=== PATIENT | female | born 1955 | race Caucasian/White ===

== ENCOUNTER 2017-08-06 17:14 | Inpatient (IN) | payer OTHER ==
[~2017-08-06] VITALS: Ht 162.6 cm; Wt 105.5 kg
[~2017-08-06 17:14] MED LIST: AMLODIPINE BESYL5 MG PO; ANASTROZOLE1 MG PO; BUPROPION XL300 MG PO; CEFDINIR300 MG PEG; FENOFIBRATE145 MG PO; GEMFIBROZIL600 MG PO; GLIPIZIDE ER10 MG PO; HUMULIN N100 UNITS/; LOSARTAN-HCTZ1 EAC1 PO; METFORMIN HCL1000 M1 PO; OMEPRAZOLE20 M1 PO; PYRIDIUM100 MG PO; SIMVASTATIN80 MG PO; TOPROL XL100 MG PO; ZOFRAN ODT4 MG SL
[2017-08-06] MEDS: SODIUM CHLORIDE 0.9% 1000ML 1,000 ML IV STA ×2 (17:24→18:08)
[2017-08-06] MEDS ORDERED: ACETAMINOPHEN 325 MG TAB PO ONE (17:30)
[2017-08-06] MEDS ORDERED: SODIUM CHLORIDE 0.9% 100 ML 100 ML IV ONE (17:30)
[2017-08-06 17:41] LABS: ABG HCO3 18 mmol/L (23-28); ABG PCO2 26 mmHg (41-51); ABG PH 7.44 (7.31-7.41); ABG PO2 64 mmHg (80-105)
[2017-08-06 18:03] LABS: BASOPHILS % 0.3 % (0.0-1.0); HEMATOCRIT 28.8 % (34.2-44.1); HEMOGLOBIN 8.9 g/dL (12.0-16.0); LYMPHOCYTES # (AUTO) 0.8 (1.0-3.2); LYMPHOCYTES % 5.8 % (18.0-39.1); MEAN CORPUSCULAR HEMOGLOBIN 22.8 pg (28-32); MEAN CORPUSCULAR HGB CONC 30.9 g/dL (31-35); MEAN CORPUSCULAR VOLUME 73.8 fL (81-99); MONOCYTES # (AUTO) 0.6 (0.2-0.8); MONOCYTES % 4.5 % (4.4-11.3); NEUTROPHILS % 87.6 % (38.7-80.0); PLATELET COUNT 223 x10e3/uL (140-360)
[2017-08-06 18:07] LABS: INR 1.25; PROTHROMBIN TIME 14.8 seconds (11.9-14.5)
[2017-08-06 18:08] LABS: PARTIAL THROMBOPLASTIN TIME 34.9 seconds (23.8-35.5)
[2017-08-06 18:14] LABS: CLARITY,URINE SL CLOUDY (CLEAR); COLOR,URINE YELLOW (YELLOW)
[2017-08-06 18:15] LABS: BILIRUBIN,URINE 1+ (NEGATIVE); KETONES,URINE 1+ (NEGATIVE); LEUKOCYTE ESTERASE ,URINE NEGATIVE (NEGATIVE); NITRITE,URINE NEGATIVE (NEGATIVE); PROTEIN,URINE DIPSTICK 2+ (NEGATIVE); URINE UROBILINOGEN 0.2 mg/dL (0.2 - 1)
[2017-08-06] MEDS ORDERED: SODIUM CHLORIDE 0.9% 1000ML 1,000 ML IV SCH (18:15)
[2017-08-06] MEDS ORDERED: ALBUTEROL/IPRATROPIUM 3 ML NEB NEB ONE (18:15)
[2017-08-06 18:16] LABS: ALBUMIN 2.8 g/dL (3.5-5.0); ALBUMIN/GLOBULIN RATIO 0.5 (0.8-2.0); ANION GAP 23.4 mmol/L (8-16); CALCIUM 9.8 mg/dL (8.4-10.2); CREATININE, SERUM 1.55 mg/dL (0.57-1.11); MAGNESIUM 1.2 MG/DL (1.3-2.1); POTASSIUM 3.4 mmol/L (3.5-5.1)
--- NOTE | 2017-08-06 18:22 | Diagnostic Imaging Report ---
PROCEDURE: CHEST SINGLE (PORTABLE) COMPARISON: None. INDICATIONS: NAUSEA/VOMITING/WEAKNESS FINDINGS: LUNGS: Lung volumes are low. No consolidation or mass in the aerated portion of the lungs. PLEURA: No large effusions. No pneumothorax HEART \T\ MEDIASTINUM: The heart is enlarged. The pulmonary vasculature is normal. BONES \T\ SOFT TISSUES: No focal osseous lesions. Soft tissues are unremarkable. CONCLUSION: Low lung volumes and cardiomegaly without vascular congestion. Dictated by: Fede Moreira M.D. on 08/06/2017 at 18:23 Electronically approved by: Fede Moreira M.D. on 08/06/2017 at 18:23
[2017-08-06 18:23] LABS: AMORPHOUS SEDIMENT,URINE MODERATE (FEW); BACTERIA,URINE MODERATE /HPF; EPITHELIAL CELLS,URINE FEW /LPF; RBC,URINE 0-5 /HPF (0-5)
[2017-08-06 18:27] LABS: B-TYPE NATRIURETIC PEPTIDE2 45.1 pg/mL (0-100)
[2017-08-06] MEDS ORDERED: LIPITOR80 MG PO (18:29)
[2017-08-06 18:35] LABS: CREATINE KINASE MB 0.9 ng/mL (0-5.0); THYROID STIMULATING HORMONE 0.994 uIU/mL (0.350-4.940)
[2017-08-06 18:42] LABS: BAND NEUTROPHILS % (MANUAL) 1 %; HYPOCHROMASIA SLIGHT; LYMPHOCYTES % (MANUAL) 5 % (19-48); MONOCYTES % (MANUAL) 4 % (3.4-9.0); NEUTROPHILS % (MANUAL) 90 % (40-74); PLATELET ESTIMATE ADEQUATE; PLATELET MORPHOLOGY COMMENT FEW GIANT; RBC MORPHOLOGY COMMENT NORMAL
[2017-08-06] MEDS ORDERED: PIPER-TAZ 3.375 GM 50 ML IV STA (18:49)
[2017-08-06] MEDS ORDERED: DIATRIZOATE MEGL/DIATRIZOA SOD 30 ML BTL PO ONE (18:49)
[2017-08-06] MEDS ORDERED: VANCOMYCIN 1GM/NS 250 ML 250 ML IV STA (18:49)
[2017-08-06] MEDS ORDERED: INSULIN DETEMIR 100 UNIT/ML PEN SQ PRN (19:00)
[2017-08-06] MEDS ORDERED: MAGNESIUM SULF 1GRAM/DEXTROSE 100 ML IV ONE (19:05)
[2017-08-06] MEDS ORDERED: SODIUM CHLORIDE 0.9% 100 ML ONE (19:06)
[2017-08-06] MEDS: INSULIN REGULAR, HUMAN 3ML VL 100 UNIT in SODIUM CHLORIDE 0.9% 100 ML IV SCH ×2 (19:10)
[2017-08-06] MEDS: SODIUM CHLORIDE 0.9% 1000ML 1,000 ML IV SCH ×2 (19:10→23:17)
[2017-08-06] MEDS: POTASSIUM CHLORIDE 20MEQ/100ML 200 ML IV PRN ×2 (19:10→23:17)
[2017-08-06] MEDS ORDERED: VANCOMYCIN HCL 1GM/NS 250 ML BAG IV SCH (19:15)
[2017-08-06] MEDS: MAGNESIUM SULF 1GRAM/DEXTROSE 100 ML IV PRN ×2 (19:20→23:18)
--- OUTSIDE RECORDS SUMMARY | 2017-08-06 19:24 | XMS REPORT ---
Author Author [facility] Address Unknown Phone Unavailable Care Team Providers Care Paint Laboratory Technician Name Role Phone NIRALI WELCH Unavailable Unavailable Problems This patient has no known problems. Allergies, Adverse Reactions, Alerts This patient has no known allergies or adverse reactions. Medications This patient has no known medications. Results Test Description Test Time Test Comments Text Results Atomic Results Result Comments CHEST SINGLE (PORTABLE) [place] [address] Patient Name: BETTY BARKER MR #: [id number] : 1955 Age/Sex: 61/F Req #: [id number] Adm Physician: Ordered by: ALYSSA MOROCHO NP Report #: [id number] Location: ER Room/Bed: Procedure: [id number] DX/CHEST SINGLE (PORTABLE) Exam Date: 08/06/17 Exam Time: 1740 REPORT STATUS: Signed PROCEDURE: CHEST SINGLE (PORTABLE) COMPARISON: None. INDICATIONS: NAUSEA/VOMITING/ WEAKNESS FINDINGS: LUNGS: Lung volumes are low. No consolidation or mass in the aerated portion of the lungs. PLEURA: No large effusions. No pneumothorax HEART T MEDIASTINUM: The heart is enlarged. The pulmonary vasculature is normal. BONES T SOFT TISSUES : No focal osseous lesions. Soft tissues are unremarkable. CONCLUSION : Low lung volumes and cardiomegaly without vascular congestion. Dictated by: Tomas Moreira M.D. on 08/06/2017 at 18:23 Electronically approved by: Tomas Moreira M.D. on 08/06/2017 at 18:23 Dictated By: TOMAS MOREIRA MD 22 Transcribed By: MIGUEL on 08/06/171822 COPY TO: ALYSSA MOROCHO NP
[2017-08-06] MEDS ORDERED: ONDANSETRON HCL INJ 2 MG/ML VIAL ONE (19:29)
[2017-08-06] MEDS ORDERED: VANCOMYCIN 1GM/NS 250 ML 250 ML IV SCH (19:30)
--- NOTE | 2017-08-06 19:49 | Diagnostic Imaging Report ---
EXAM: CT Chest, abdomen and pelvis WITHOUT contrast 08/06/2017 6:44 PM INDICATION: Fever. Vomiting. Nausea. Weakness. COMPARISON: None TECHNIQUE: Chest, abdomen and pelvis was scanned utilizing a multidetector helical scanner without administration of IV contrast. Absence of intravenous contrast decreases sensitivity for detection of lymphadenopathy and vascular pathology. Coronal and sagittal reformations were obtained. Routine protocol was performed. IV CONTRAST: None RADIATION DOSE: Total DLP: 1291.46 mGy*cm Estimated effective dose: (DLP x 0.014 x size factor) mSv COMPLICATIONS: None FINDINGS: LINES/ TUBES: None. Breast implants. LUNGS AND AIRWAYS: Mild scarring/atelectasis at the lung bases. Airways are normal. PLEURA: The pleural spaces are clear. HEART AND MEDIASTINUM: The thyroid gland is normal. No mediastinal, hilar or axillary lymphadenopathy. The heart is normal in size.. There is no pericardial effusion. Abdomen: Enlargement of the left hepatic lobe with focal nodularity along the anterior margin as seen on series 2 image 55. MRI is recommended for further evaluation. The gallbladder is surgically absent. 2 cm left adrenal gland mass is indeterminate. Left greater than right perinephric fat stranding worrisome for pyelonephritis. The spleen, pancreas, right adrenal gland are unremarkable in appearance. No free fluid or abnormal fluid collections. Left periaortic lymph nodes likely reactive. There is scattered diverticulosis without evidence of diverticulitis. The appendix is unremarkable. Pelvis: Garcia catheter and air within the lumen of the urinary bladder. The urinary bladder and remainder of the visualized pelvic structures are otherwise unremarkable. BONES: The visualized bony thorax is within normal limits. SOFT TISSUES: Unremarkable. IMPRESSION: Findings worrisome for left greater than right pyelonephritis. Enlargement of the left hepatic lobe with focal nodularity along the anterior margin as seen on series 2 image 55. MRI is recommended for further evaluation. 2 cm left adrenal gland mass is indeterminate. Signed by: Dr. Johnson Reyez M.D. on 08/06/2017 7:46 PM
[2017-08-06] MEDS ORDERED: IBUPROFEN 600 MG TAB PO STA (19:51)
[2017-08-06] MEDS: ALBUTEROL SULF 0.083% NEB SOLN 3 ML NEB NEB SCH (20:50)
[2017-08-06] MEDS: ACETAMINOPHEN 325 MG TAB PO PRN (21:47)
[2017-08-06] MEDS ORDERED: PIPER-TAZ 3.375 GM 100 ML IV SCH (22:00)
[2017-08-06] MEDS ORDERED: ONDANSETRON HCL 4 MG ORAL DISINTEGRATING TAB ONE (22:12)
[2017-08-06] MEDS: ONDANSETRON HCL 4 MG ORAL DISINTEGRATING TAB PO PRN (22:26)
[2017-08-06 22:45] LABS: ANION GAP 15.8 mmol/L (8-16); CALCIUM 8.8 mg/dL (8.4-10.2); CREATININE, SERUM 1.3 mg/dL (0.57-1.11); MAGNESIUM 1.2 MG/DL (1.3-2.1)
[2017-08-06 22:48] LABS: POTASSIUM 2.8 mmol/L (3.5-5.1)
[2017-08-06] MEDS ORDERED: MAGNESIUM SULFATE 2GM/50ML 50 ML IV ONE (23:07)
[2017-08-07] MEDS: ALBUTEROL SULF 0.083% NEB SOLN 3 ML NEB NEB SCH ×3 (00:05→07:00)
[2017-08-07] MEDS: IPRATROPIUM BROMIDE 0.02% 2.5 ML NEB NEB SCH ×2 (00:05→07:00)
[2017-08-07 01:59] LABS: ANION GAP 14.8 mmol/L (8-16); CALCIUM 8.7 mg/dL (8.4-10.2); CREATININE, SERUM 1.34 mg/dL (0.57-1.11); MAGNESIUM 1.8 MG/DL (1.3-2.1)
[2017-08-07 02:02] LABS: POTASSIUM 2.8 mmol/L (3.5-5.1)
[2017-08-07] MEDS ORDERED: POTASSIUM CHLORIDE 20MEQ/100ML 100 ML ONE ×2 (02:05→06:37)
[2017-08-07] MEDS: POTASSIUM CHLORIDE 20MEQ/100ML 200 ML IV PRN ×3 (02:19→06:40)
[2017-08-07 02:23] LABS: CREATINE KINASE MB 1.3 ng/mL (0-5.0)
[2017-08-07] MEDS: SODIUM CHLORIDE 0.9% 1000ML 1,000 ML IV SCH ×7 (02:39→23:30)
[2017-08-07] MEDS: ACETAMINOPHEN 325 MG TAB PO PRN ×4 (02:39→23:22)
[2017-08-07] MEDS ORDERED: PIPER-TAZ 3.375 GM 100 ML IV SCH (03:00)
[2017-08-07] MEDS ORDERED: SODIUM CHLORIDE 0.9% 500ML 500 ML ONE (03:14)
[2017-08-07] MEDS ORDERED: SODIUM CHLORIDE 0.9% 100 ML ONE (03:58)
[2017-08-07] MEDS: ONDANSETRON HCL 4 MG ORAL DISINTEGRATING TAB PO PRN (04:01)
[2017-08-07] MEDS: INSULIN REGULAR, HUMAN 3ML VL 100 UNIT in SODIUM CHLORIDE 0.9% 100 ML IV SCH ×2 (04:02)
[2017-08-07] MEDS ORDERED: POTASSIUM CHLORIDE 10MEQ/100ML 100 ML ONE (04:29)
[2017-08-07 05:14] LABS: BASOPHILS % 0.4 % (0.0-1.0); HEMATOCRIT 24.5 % (34.2-44.1); HEMOGLOBIN 7.5 g/dL (12.0-16.0); LYMPHOCYTES # (AUTO) 0.4 (1.0-3.2); LYMPHOCYTES % 4.7 % (18.0-39.1); MEAN CORPUSCULAR HEMOGLOBIN 22.4 pg (28-32); MEAN CORPUSCULAR HGB CONC 30.6 g/dL (31-35); MEAN CORPUSCULAR VOLUME 73.1 fL (81-99); MONOCYTES # (AUTO) 0.4 (0.2-0.8); MONOCYTES % 4.7 % (4.4-11.3); NEUTROPHILS # (AUTO) 7.4 (2.1-6.9); NEUTROPHILS % 88.6 % (38.7-80.0); PLATELET COUNT 147 x10e3/uL (140-360); RED BLOOD COUNT 3.35 x10e6/uL (3.6-5.1); RED CELL DISTRIBUTION WIDTH 16.6 % (11.7-14.4)
[2017-08-07] MEDS: DEXTROSE 5%/0.45% SOD CHL 1,000 ML IV SCH ×2 (05:15→06:18)
[2017-08-07 05:30] LABS: ALBUMIN 2.2 g/dL (3.5-5.0); ALBUMIN/GLOBULIN RATIO 0.5 (0.8-2.0); ANION GAP 15.3 mmol/L (8-16); CALCIUM 8.5 mg/dL (8.4-10.2); CREATININE, SERUM 1.32 mg/dL (0.57-1.11); POTASSIUM 3.3 mmol/L (3.5-5.1)
--- NOTE | 2017-08-07 07:08 | Diagnostic Imaging Report ---
EXAMINATION: CHEST SINGLE (PORTABLE) INDICATION: Pneumonia. COMPARISON: 08/06/2017 FINDINGS: TUBES and LINES: None. LUNGS: Lungs are not well inflated. There are bibasilar atelectasis. There is no evidence of pneumonia or pulmonary edema. PLEURA: No pleural effusion or pneumothorax. HEART AND MEDIASTINUM: The cardiomediastinal silhouette is unremarkable. BONES AND SOFT TISSUES: No acute osseous lesion. Soft tissues are unremarkable. UPPER ABDOMEN: No free air under the diaphragm. IMPRESSION: No acute thoracic abnormality. Signed by: Dr. Isidoro aGrcia M.D. on 08/07/2017 7:04 AM
[2017-08-07 07:49] LABS: BAND NEUTROPHILS % (MANUAL) 10 %; LYMPHOCYTES % (MANUAL) 5 % (19-48); MONOCYTES % (MANUAL) 2 % (3.4-9.0); NEUTROPHILS % (MANUAL) 83 % (40-74)
[2017-08-07 07:50] LABS: HYPOCHROMASIA MODERATE; PLATELET ESTIMATE SLIGHTLY DECREASED; PLATELET MORPHOLOGY COMMENT FEW LARGE; RBC MORPHOLOGY COMMENT NORMAL
[2017-08-07 07:51] LABS: ANISOCYTOSIS SLIGHT
[2017-08-07] MEDS ORDERED: DEXTROSE 50% SYRINGE 50 ML IV PRN (08:30)
[2017-08-07] MEDS ORDERED: SODIUM CHLORIDE 0.45% 1,000 ML IV SCH (08:30)
[2017-08-07] MEDS: CEFTRIAXONE SOD 1 GM VIAL IV SCH (08:47)
[2017-08-07 10:04] LABS: CREATINE KINASE MB 1.1 ng/mL (0-5.0)
[2017-08-07 10:29] LABS: HEMATOCRIT 26.2 % (34.2-44.1); HEMOGLOBIN 7.9 g/dL (12.0-16.0)
[2017-08-07 10:46] LABS: % IRON SATURATION 2 % (15-50); IRON 6 ug/dL (50-170); TOTAL IRON BINDING CAPACITY 374 ug/dL (261-478); TRANSFERRIN 267 mg/dL (180-382)
[2017-08-07] MEDS ORDERED: POTASSIUM CHLORIDE 20 MEQ TAB CR PO ONE (11:00)
[2017-08-07] MEDS ORDERED: PROMETHAZINE 12.5MG/ NACL 0.9% 12.5 MG/50 ML BAG IV PRN (11:00)
[2017-08-07 11:08] VITALS: BP 151/63
[2017-08-07] MEDS: PROMETHAZINE 12.5MG/ NACL 0.9% 50 ML IV PRN ×2 (11:47→15:13)
[2017-08-07] MEDS: MORPHINE SULFATE 2 MG/ML SYR IV PRN ×3 (11:47→21:10)
[2017-08-07] MEDS: INSULIN REGULAR, HUMAN 100 UNIT/1 ML 3ML VIAL SQ SCH ×3 (12:08→21:10)
[2017-08-07 12:36] VITALS: BP 142/61
--- NOTE | 2017-08-07 14:34 | Diagnostic Imaging Report ---
PROCEDURE:MRI ABDOMEN WO COMPARISON:None. INDICATIONS:Not provided. TECHNIQUE: Multiplanar, multisequence MRI of the abdomen without intravenous contrast Using the routine protocol. Sequences included axial T1 weighted images, T1 weighted opposed phase images, T2-weighted images in the axial and coronal planes. Coronal FIESTA images and diffusion-weighted images were also obtained. IV CONTRAST: None COMPLICATIONS: None FINDINGS: The examination is limited by significant motion artifact LINES/ TUBES: None. LOWER THORAX: Bibasilar atelectasis. HEPATOBILIARY: Cirrhotic liver morphology. There is a 3.1 cm mildly T2 hyperintense mass in the left hepatic lobe (series 8, image 31). The gallbladder is nonvisualized. SPLEEN: The spleen is mildly enlarged, measuring 13.8 cm in craniocaudal dimension. PANCREAS: Limited visualization of the pancreas due to motion artifact. No gross abnormalities. ADRENALS: 2.0 cm left adrenal mass with no convincing loss of signal on opposed phase images. No right adrenal mass. KIDNEYS: Redemonstrated is mild enlargement of the left kidney with asymmetric perinephric stranding. No hydronephrosis. A 1.1 cm T2 hyperintense lesion in the lower pole of the right kidney (series 8, image 46) could represent a cyst. GI TRACT: Visualized bowel is grossly unremarkable. LYMPH NODES: No obvious lymphadenopathy. VESSELS: Unremarkable PERITONEUM/RETROPERITONEUM: No free air or free fluid in the upper abdomen. BONES: Unremarkable SOFT TISSUES: Bilateral breast implants are partially visualized. IMPRESSION: 1. Very limited examination due to the lack of intravenous contrast and significant motion artifact. 2. Cirrhotic liver with evidence of portal hypertension. 3. There is a 3.1 cm mass in the left hepatic lobe which is suspicious for hepatocellular carcinoma. Recommend liver protocol CT or MRI of the abdomen (with and without contrast) when clinically feasible. 4. 2.0 cm left adrenal nodule is indeterminate. 5. Again seen is mild enlargement of the left kidney with left perinephric stranding. This is suspicious for pyelonephritis. Dictated by: Maulik Garcia M.D. on 08/07/2017 at 14:35 Electronically approved by: Maulik Garcia M.D. on 08/07/2017 at 14:35
[2017-08-07 16:04] VITALS: BP 176/76
[2017-08-07] MEDS ORDERED: HYDRALAZINE HCL 20 MG/ML VIAL IV PRN (16:15)
[2017-08-07] MEDS: ALBUTEROL/IPRATROPIUM 3 ML NEB NEB PRN ×3 (16:30→23:09)
[2017-08-07 16:55] LABS: ABG HCO3 20 mmol/L (23-28); ABG PCO2 25 mmHg (41-51); ABG PH 7.51 (7.31-7.41); ABG PO2 61 mmHg (80-105)
[2017-08-07 17:12] VITALS: BP 139/64
[2017-08-07] MEDS ORDERED: VANCOMYCIN 1GM/NS 250 ML 250 ML IV SCH (18:00)
[2017-08-07] MEDS ORDERED: IRON SUCROSE 100 MG in SODIUM CHLORIDE 0.9% 100 ML 100 ML IV SCH ×2 (19:00→20:00)
[2017-08-07 20:00] VITALS: BP 174/71
[2017-08-07 21:07] VITALS: BP 174/71
[2017-08-07] MEDS: NIFEDIPINE CR 30 MG TAB PO SCH (23:18)
[2017-08-07] MEDS: METOPROLOL TARTRATE 50 MG TAB PO SCH (23:22)
[2017-08-08] VITALS (16 sets, daily range): BP systolic 116–163; BP diastolic 60–72
[2017-08-08] MEDS: MORPHINE SULFATE 2 MG/ML SYR IV PRN ×6 (00:10→20:35)
[2017-08-08] MEDS: ALBUTEROL/IPRATROPIUM 3 ML NEB NEB PRN ×4 (02:30→19:28)
[2017-08-08] MEDS ORDERED: FUROSEMIDE INJ 10 MG/ML 4 ML VIAL IV ONE ×2 (03:00→16:00)
[2017-08-08] MEDS: HEPARIN SOD (PORCINE) 5,000 UNIT/ML VIAL SC SCH ×3 (06:04→23:46)
--- NOTE | 2017-08-08 07:39 | Diagnostic Imaging Report ---
EXAMINATION: Chest, CHEST SINGLE (PORTABLE) INDICATION: Chest pain COMPARISON: Portable chest 08/07/2017 FINDINGS: LINES: None. Heart: Normal cardiac silhouette. Vascular: The pulmonary vasculature is within normal limits. Atherosclerotic calcifications of the aortic arch. Mediastinum: No mediastinal, hilar, or axillary mass or lymphadenopathy. Lungs: No parenchymal mass. Bilateral multifocal airspace opacities. Pleura: No pleural effusion. No pneumothorax. Bones: No acute osseous abnormality. Degenerative changes of the thoracic spine. Soft tissues: Normal. Impression: Bilateral multifocal airspace opacities may represent atelectasis or developing pneumonia. Signed by: Dr. Shawn Hudson M.D. on 08/08/2017 7:36 AM
[2017-08-08] MEDS: CEFTRIAXONE SOD 1 GM VIAL IV SCH (07:44)
[2017-08-08] MEDS: METOPROLOL TARTRATE 50 MG TAB PO SCH ×2 (07:45→21:34)
[2017-08-08] MEDS: INSULIN REGULAR, HUMAN 100 UNIT/1 ML 3ML VIAL SQ SCH ×4 (07:47→21:39)
[2017-08-08 08:08] LABS: BASOPHILS % 0.2 % (0.0-1.0); EOSINOPHILS % 0.2 % (0.0-6.0); HEMATOCRIT 24.1 % (34.2-44.1); HEMOGLOBIN 7.3 g/dL (12.0-16.0); LYMPHOCYTES # (AUTO) 0.7 (1.0-3.2); MEAN CORPUSCULAR HEMOGLOBIN 22.5 pg (28-32); MEAN CORPUSCULAR HGB CONC 30.3 g/dL (31-35); MEAN CORPUSCULAR VOLUME 74.2 fL (81-99); MONOCYTES # (AUTO) 0.7 (0.2-0.8); MONOCYTES % 7.6 % (4.4-11.3); NEUTROPHILS # (AUTO) 7.8 (2.1-6.9); NEUTROPHILS % 84.1 % (38.7-80.0); PLATELET COUNT 167 x10e3/uL (140-360); RED BLOOD COUNT 3.25 x10e6/uL (3.6-5.1); RED CELL DISTRIBUTION WIDTH 16.5 % (11.7-14.4)
[2017-08-08 08:21] LABS: INR 1.27; PROTHROMBIN TIME 14.9 seconds (11.9-14.5)
[2017-08-08 08:22] LABS: PARTIAL THROMBOPLASTIN TIME 40.6 seconds (23.8-35.5)
[2017-08-08 08:26] LABS: ALBUMIN 2.1 g/dL (3.5-5.0); BILIRUBIN,DIRECT 0.4 mg/dL (0.0-0.5)
[2017-08-08 08:34] LABS: ANION GAP 15.1 mmol/L (8-16); CALCIUM 8.8 mg/dL (8.4-10.2); CREATININE, SERUM 1.6 mg/dL (0.57-1.11); MAGNESIUM 1.6 MG/DL (1.3-2.1); POTASSIUM 4.1 mmol/L (3.5-5.1)
[2017-08-08 10:55] LABS: NEUTROPHILS % (MANUAL) 84 % (40-74)
[2017-08-08 10:56] LABS: LYMPHOCYTES % (MANUAL) 10 % (19-48); MONOCYTES % (MANUAL) 6 % (3.4-9.0); PLATELET ESTIMATE ADEQUATE; PLATELET MORPHOLOGY COMMENT NORMAL; RBC MORPHOLOGY COMMENT NORMAL
[2017-08-08] MEDS ORDERED: INSULIN DETEMIR 100 UNIT/ML PEN SQ ONE (16:00)
[2017-08-08] MEDS ORDERED: GENTAMICIN 120MG/NS 100ML 100 ML IV ONE ×2 (16:00)
--- NOTE | 2017-08-08 16:10 | Progress Note ---
DATE: August 08, 2017 PULMONARY MEDICINE PROGRESS NOTE SUBJECTIVE: Ms. Graham was seen and examined at bedside. She had worsening overnight. She became increasingly more short of breath. She had to be initiated on BiPAP for salvage, and she was transferred to ICU. She was given a trial of Lasix as well, hopefully with some partial responsiveness. So far, E. coli is being grown from her urine, which has already been found to be sensitive to . REVIEW OF SYSTEMS: No chest pain, no blood in urine. OBJECTIVE VITAL SIGNS: Afebrile. Vital signs noted per the chart record. GENERAL: In no apparent distress, alert and calm. HEENT: Normocephalic, atraumatic. NECK: Supple. Throat midline. LUNGS: Bilateral air entry, decreased breath sounds, limited air entry. CARDIOVASCULAR: S1 and S2 and no murmurs, rubs or gallops. ABDOMEN: Soft and nontender. EXTREMITIES: No cyanosis or cyanosis. There is 1+ edema. INTEGUMENT: No rash, no purpura. LABORATORY DATA: Sodium 126, potassium 4.1, BUN 33, creatinine 1.6, glucose 296, white count 9, hematocrit 24, platelets 168,000. IMPRESSION AND PLAN 1. Acute respiratory failure, attempts with BiPAP salvage. 2. Obesity. 3. Probable acute lung injury, . 4. Multiorgan dysfunction. 5. Escherichia coli urinary tract infection/pyelonephritis and likely Escherichia coli septicemia. 6. Viwpq-uz-lwfatid kidney disease. Suspected chronic, although ultrasound is still pending. 7. Hypertension. 8. Diabetes, uncontrolled with acidosis. 9. Breast cancer. 10. Anxiety. 11. Gastroesophageal reflux disease. 12. Pancreatitis. RECOMMENDATIONS: Will continue to follow closely. Give another dose of Lasix. The patient may need to be intubated. Follow up sodium levels. Follow up anemia. Additional antibiotic to cover E. coli today. Will follow up closely. The patient is in critical condition. Ensure appropriate hemodynamics. Job#: [id number]
--- NOTE | 2017-08-08 17:28 | Consultation ---
DATE OF CONSULTATION: August 07, 2017 PULMONARY MEDICINE CONSULT PRIMARY CARE DOCTOR: Dr. Coker [facility] PHYSICIAN: Dr. Maxime Anglin REASON FOR REFERRAL: Tachypnea. HISTORY: Ms. Graham is a pleasant 61-year-old female with tachypnea. Patient presented to [facility] on August 06, 2017. Patient had issues with fevers. She had associated nausea and vomiting. Some diarrhea also reported. There are muscle aches. Patient was complaining about left flank pain. She went to her primary care doctor, but was sent to emergency room because her blood sugar was greater than 600s. In the emergency room, it was noted that chest x-ray with very limited assessment and high diaphragms. Patient had series of chest radiography done including CT chest demonstrating right middle lobe atelectasis, possibly chronic, bilateral elevated diaphragms, low lung volumes, PA of 30 mm and aortic diameter of 32 mm, otherwise unremarkable. Other findings included MRI of the abdomen showing liver lesion as well as adrenal lesion and cirrhosis with portal hypertension. There was also left perinephric stranding suggestive of possible pyelonephritis. She was admitted for this treatment. It is noted that the patient is on 3.5 liters per minute of oxygen with 88% oxygen saturation and she has tachypnea, breathing in 30s per minute. History of allergies. No asthma, no allergies. No obstructive sleep apnea assessments in the past. No history of bronchodilator use. PAST MEDICAL HISTORY: Hypertension, diabetes, breast cancer, anxiety, GERD, hyperlipidemia, pancreatitis, , mastectomy and breast implants, new diagnosis of cirrhosis. MEDICATIONS: Medication list reviewed per electronic record. Included Norvasc, atorvastatin, bupropion, fenofibrate, gemfibrozil, glipizide, insulin, losartan and hydrochlorothiazide, metformin, metoprolol, omeprazole. ALLERGIES: NO KNOWN DRUG ALLERGIES. SOCIAL HISTORY: No smoking, no drinking, no drugs. FAMILY HISTORY: Noncontributory to this. REVIEW OF SYSTEMS: Cannot get reliably as patient is very fatigued and pale, not able to get good information. OBJECTIVE: VITAL SIGNS: Patient having fevers to 102.5 degrees so far in the hospital. Still febrile. GENERAL: Looking pale, tachypneic, short of breath on sentences, in bed. HEENT: Normocephalic, atraumatic. NECK: Supple. Throat midline. LUNGS: Bilateral air entry is good, but decreased at the bases, rare wheezing is heard. CARDIOVASCULAR: S1, S2. No murmurs, rubs, or gallops. ABDOMEN: Soft, obese, there is mild discomfort throughout. There is worse pain in the left flank. EXTREMITIES: No clubbing, no cyanosis, no edema. INTEGUMENT: No rash, no purpura. LABS: 14 white count, 28 hematocrit, 223,000 platelets. 10% bands. 7.44//64 on ABG. 1.25 INR. Last glucose now 292. Albumin is 2.2, 8 lipase, creatinine is 1.6 on admission, bicarbonate was 20, 127 sodium, 3.4 potassium, 87 chloride, 30 BUN. Anion gap was 20 with albumin of 2.8. BNP 45. Urinalysis with 1+ ketones, 67 white cells. Blood culture with growth so far detected, urine culture with gram-negative bacilli so far. Chest x-ray as stated before. IMPRESSION AND PLAN: 1. Severe sepsis. 2. Gram-negative asaf septicemia. 3. Pyelonephritis. 4. Early diabetic ketoacidosis. 5. Hypoxemia. 6. Rhinosinus congestion. 7. History of allergies. 8. Obesity, possible sleep apnea. 9. Elevated bilateral diaphragms, not otherwise specified. 10. Right middle lobe atelectasis, possibly chronic. 11. History of adrenal 0.7 cm left nodule, indeterminate. 12. 3.1 cm left hepatic lobe mass. 13. History of breast cancer. 14. Anemia. 15. Mildly elevated coagulation times. 16. History of pancreatitis. 17. History of hypertension. 18. Diabetes. 19. Hyperlipidemia. 20. Anxiety. 21. Gastroesophageal reflux disease. 22. Cirrhosis, new diagnosis. Continue insulin loading to fix acidosis. Continue high-dose antibiotics for septicemia. Follow up blood cultures and adjust antibiotics as needed. Repeat chest x-ray and follow up for possibly the fluid overload, although patient does require good fluid loading. Saline spray to the nose to maintain nasal patency and encourage nose breathing. If that give nasal steroids. Patient will need triple-phase CT of liver when she is able to breathe better. She will need consideration for weight loss and liver transplant evaluation after PET scan proves that there are no other lesions present. Ultrasound needed to assess for portal hypertension in case other treatments are needed. Deep venous thrombosis prophylaxis is highly recommended. Thank you very much, Dr. Anglin for allowing me the chance to participate in the care of Ms. Graham. Thank you Dr. Pollard. Please call for questions. Job#: [id number]
--- NOTE | 2017-08-08 19:23 | Diagnostic Imaging Report ---
PROCEDURE:NON-TUNNELLED CVC CATH PLACMNT COMPARISON:None. INDICATIONS: No IV access COMPLICATIONS: None BLOOD LOSS: Less than 5 cc's PROCEDURE: Preliminary ultrasound reveals the right internal jugular vein to be patent. Sterile preparation and local anesthesia with 1% Xylocaine was accomplished. Ultrasound was utilized for venous access into the right internal jugular vein with a 21 gauge skinny needle. A 0.018 inch wire was then placed. Micropuncture sheath was placed over the skinny wire. A 0.035 inch Amplatz Super Stiff wire was placed through the outer lumen of the sheath. Serial dilatation was accomplished and an Arrow 7 Sami triple-lumen 15 cm long central line placed over the wire. A confirmatory film was ordered. CONCLUSION: Successful placement of a right IJ central venous catheter utilizing ultrasound guidance. Yuniel Archibald D.O. Dictated by: Yuniel Archibald D.O. on 08/08/2017 at 19:25 Electronically approved by: Yuniel Archibald D.O. on 08/08/2017 at 19:25
--- NOTE | 2017-08-08 19:25 | Diagnostic Imaging Report ---
PROCEDURE:ULTRASOUND GUIDANCE FOR VASCULAR ACCESS COMPARISON:[facility], IR, NON-TUNNELLED CVC CATH PLACMNT, 08/08/2017, 18:12. INDICATIONS:Poor IV access FINDINGS:The right internal jugular vein is noted to be patent. Ultrasound guidance was utilized for access for central line placement. CONCLUSION:Patent right internal jugular vein vein. Successful ultrasound guidance for central line placement. Please see the full report listed under accession number [id number] for full details. Yuniel Archibald D.O. Dictated by: Yuniel Archibald D.O. on 08/08/2017 at 19:27 Electronically approved by: Yuniel Archibald D.O. on 08/08/2017 at 19:27
--- NOTE | 2017-08-08 19:25 | Diagnostic Imaging Report ---
PROCEDURE:ULTRASOUND GUIDANCE FOR VASCULAR ACCESS COMPARISON:[facility], IR, NON-TUNNELLED CVC CATH PLACMNT, 08/08/2017, 18:12. INDICATIONS:Poor IV access FINDINGS:The right internal jugular vein is noted to be patent. Ultrasound guidance was utilized for access for central line placement. CONCLUSION:Patent right internal jugular vein vein. Successful ultrasound guidance for central line placement. Please see the full report listed under accession number [id number] for full details. Yuniel Archibald D.O. Dictated by: Yuniel Archibald D.O. on 08/08/2017 at 19:27 Electronically approved by: Yuniel Archibald D.O. on 08/08/2017 at 19:27
--- NOTE | 2017-08-08 19:28 | Diagnostic Imaging Report ---
PROCEDURE: A single AP view of the chest. COMPARISON: [facility], DX, CHEST SINGLE (PORTABLE), 08/08/2017, 6:27. INDICATIONS: POST CVC PLACEMENT FINDINGS: Lines/tubes: Right IJ central line present with its tip overlying the right atrium and okay for use. Lungs: The mild pulmonary vascular congestion. Bilateral air space opacities are unchanged. Pleura: There is no pleural effusion or pneumothorax. Heart and mediastinum: The heart is prominent. Bones: No acute bony abnormality. IMPRESSION: 1. Right IJ central line in appropriate location. 2. Mild pulmonary vascular congestion. 3. Bilateral air space opacities are unchanged. Yuniel Archibald D.O. Dictated by: Yuniel Archibald D.O. on 08/08/2017 at 19:30 Electronically approved by: Yuniel Archibald D.O. on 08/08/2017 at 19:30
[2017-08-08] MEDS: NIFEDIPINE CR 30 MG TAB PO SCH (21:35)
[2017-08-09] VITALS (35 sets, daily range): BP systolic 101–142; BP diastolic 50–84
[2017-08-09] MEDS: ACETAMINOPHEN 325 MG TAB PO PRN (00:47)
[2017-08-09] MEDS: MORPHINE SULFATE 2 MG/ML SYR IV PRN ×3 (00:57→19:41)
[2017-08-09] MEDS: HEPARIN SOD (PORCINE) 5,000 UNIT/ML VIAL SC SCH ×3 (06:32→21:21)
[2017-08-09 06:35] LABS: BASOPHILS % 0.4 % (0.0-1.0); EOSINOPHILS # (AUTO) 0.2 (0.0-0.4); LYMPHOCYTES # (AUTO) 1.2 (1.0-3.2); LYMPHOCYTES % 13.8 % (18.0-39.1); MEAN CORPUSCULAR HEMOGLOBIN 22.4 pg (28-32); MEAN CORPUSCULAR HGB CONC 30.7 g/dL (31-35); MEAN CORPUSCULAR VOLUME 73.1 fL (81-99); MONOCYTES # (AUTO) 0.7 (0.2-0.8); MONOCYTES % 8.3 % (4.4-11.3); NEUTROPHILS # (AUTO) 6.2 (2.1-6.9); NEUTROPHILS % 71.9 % (38.7-80.0); PLATELET COUNT 184 x10e3/uL (140-360); RED BLOOD COUNT 3.12 x10e6/uL (3.6-5.1); RED CELL DISTRIBUTION WIDTH 16.6 % (11.7-14.4)
--- NOTE | 2017-08-09 06:41 | Diagnostic Imaging Report ---
EXAMINATION: CHEST SINGLE (PORTABLE) INDICATION: Shortness of breath COMPARISON: 08/08/2017 FINDINGS: TUBES and LINES: Right IJ central line catheter in good position with tip overlying the atrial caval junction. LUNGS: Lungs are not well inflated. There are bibasilar atelectasis. There is mild prominence of the central pulmonary vasculature, consistent with pulmonary venous congestion. Confluent opacity in the right mid lung suspicious for developing pneumonia PLEURA: No pleural effusion or pneumothorax. HEART AND MEDIASTINUM: Cardiac size is mildly enlarged. BONES AND SOFT TISSUES: No acute osseous lesion. Soft tissues are unremarkable. UPPER ABDOMEN: No free air under the diaphragm. IMPRESSION: 1. Central vascular congestion. 2. Right mid lung airspace opacity suspicious for developing pneumonia Signed by: Dr. Isidoro Garcia M.D. on 08/09/2017 6:38 AM
[2017-08-09 06:55] LABS: HEMATOCRIT 22.8 % (34.2-44.1)
[2017-08-09 06:57] LABS: ALBUMIN 1.9 g/dL (3.5-5.0); ALBUMIN/GLOBULIN RATIO 0.4 (0.8-2.0); ANION GAP 15.5 mmol/L (8-16); CALCIUM 9.1 mg/dL (8.4-10.2); CREATININE, SERUM 1.65 mg/dL (0.57-1.11); MAGNESIUM 1.7 MG/DL (1.3-2.1); PHOSPHORUS 2.6 MG/DL (2.3-4.7); POTASSIUM 3.5 mmol/L (3.5-5.1)
[2017-08-09] MEDS: METOPROLOL TARTRATE 50 MG TAB PO SCH ×2 (09:00→20:57)
[2017-08-09] MEDS: INSULIN REGULAR, HUMAN 100 UNIT/1 ML 3ML VIAL SQ SCH ×4 (09:15→20:59)
[2017-08-09] MEDS: CEFTRIAXONE SOD 1 GM VIAL IV SCH (09:30)
[2017-08-09 11:43] LABS: BAND NEUTROPHILS % (MANUAL) 7 %; EOSINOPHILS % (MANUAL) 1 % (0-7); LYMPHOCYTES % (MANUAL) 13 % (19-48); MONOCYTES % (MANUAL) 8 % (3.4-9.0); NEUTROPHILS % (MANUAL) 71 % (40-74); PLATELET ESTIMATE ADEQUATE; PLATELET MORPHOLOGY COMMENT NORMAL; RBC MORPHOLOGY COMMENT NORMAL
[2017-08-09 12:23] LABS: HEMATOCRIT 23.4 % (34.2-44.1); HEMOGLOBIN 7.2 g/dL (12.0-16.0)
[2017-08-09] MEDS ORDERED: POTASSIUM CHLORIDE 20 MEQ TAB CR PO ONE (15:00)
--- NOTE | 2017-08-09 15:43 | Progress Note ---
DATE: August 09, 2017 PULMONARY MEDICINE PROGRESS NOTE SUBJECTIVE: Ms. Graham was seen and examined at bedside. The patient continues to have slow progress. She was, however, taken off BiPAP this morning. She is currently on 10 liters per minute high-flow nasal cannula. There is 94% to 90% oxygen saturation. The patient with 1.8 liters in, 2.3 liters out. One bowel movement. REVIEW OF SYSTEMS: No bleeding, no double vision. OBJECTIVE VITAL SIGNS: Afebrile. Vital signs noted per electronic record. VITAL SIGNS: Afebrile. Vital signs noted per electronic record. GENERAL: In no apparent distress, alert and calm. HEENT: Normocephalic, atraumatic. NECK: Supple. Throat midline. LUNGS: Bilateral air entry, few wheezes, few rhonchi. CARDIOVASCULAR: S1 and S2 and no murmurs, rubs or gallops. ABDOMEN: Soft and nontender. EXTREMITIES: No clubbing and no cyanosis. There is 1+ edema. INTEGUMENT: No rash, no purpura. LABORATORY DATA: Potassium 3.5, BUN 39, creatinine 1.7, white count 9, hematocrit 23, platelets 184,000. Magnesium is 1.7, albumin 1.9. IMPRESSION 1. Acute respiratory failure, BiPAP salvage. 2. Secondary lung injury, pneumonitis. 3. Pyelonephritis. 4. Duzhu-uc-bmaztqa kidney injury, suspected chronic kidney disease, although not sure. 5. Hypokalemia, hypomagnesemia. 6. Obesity. 7. Cirrhosis. 8. Hypertension, diabetes, history of breast cancer, liver tumor likely hepatocellular carcinoma. PLAN: Continue weaning the oxygen. BiPAP for salvage. Continue following urine output. The patient will continue with Garcia catheter in place. Will follow. Off additional IV fluids and start her on diet. At the same time, will consider diuretics p.r.n. if needed, although we are going to allow her sodium level to restart. Will follow up closely with potassium and magnesium repletion. Continued high-dose antibiotics for the pyelonephritis. Job#: [id number]
[2017-08-09] MEDS: NIFEDIPINE CR 30 MG TAB PO SCH (20:57)
[2017-08-10] VITALS (35 sets, daily range): BP systolic 99–145; BP diastolic 57–97
[2017-08-10] MEDS: MORPHINE SULFATE 2 MG/ML SYR IV PRN ×3 (02:29→17:26)
[2017-08-10] MEDS: ACETAMINOPHEN 325 MG TAB PO PRN ×2 (05:56→16:13)
[2017-08-10] MEDS: HEPARIN SOD (PORCINE) 5,000 UNIT/ML VIAL SC SCH ×3 (05:56→21:11)
[2017-08-10 06:08] LABS: BASOPHILS # (AUTO) 0.1 (0.0-0.1); BASOPHILS % 0.6 % (0.0-1.0); EOSINOPHILS # (AUTO) 0.2 (0.0-0.4); EOSINOPHILS % 2.2 % (0.0-6.0); HEMATOCRIT 24.7 % (34.2-44.1); HEMOGLOBIN 7.5 g/dL (12.0-16.0); LYMPHOCYTES # (AUTO) 1.3 (1.0-3.2); LYMPHOCYTES % 13.8 % (18.0-39.1); MEAN CORPUSCULAR HEMOGLOBIN 22.2 pg (28-32); MEAN CORPUSCULAR HGB CONC 30.4 g/dL (31-35); MEAN CORPUSCULAR VOLUME 73.1 fL (81-99); MONOCYTES # (AUTO) 0.7 (0.2-0.8); MONOCYTES % 7.5 % (4.4-11.3); NEUTROPHILS # (AUTO) 6.3 (2.1-6.9); NEUTROPHILS % 69.2 % (38.7-80.0); PLATELET COUNT 254 x10e3/uL (140-360); RED BLOOD COUNT 3.38 x10e6/uL (3.6-5.1); RED CELL DISTRIBUTION WIDTH 16.5 % (11.7-14.4)
[2017-08-10 06:28] LABS: ALBUMIN 2.1 g/dL (3.5-5.0); ALBUMIN/GLOBULIN RATIO 0.5 (0.8-2.0); ANION GAP 15.6 mmol/L (8-16); CALCIUM 9.4 mg/dL (8.4-10.2); CREATININE, SERUM 1.26 mg/dL (0.57-1.11); POTASSIUM 3.6 mmol/L (3.5-5.1)
[2017-08-10] MEDS: INSULIN REGULAR, HUMAN 100 UNIT/1 ML 3ML VIAL SQ SCH ×4 (08:17→20:24)
[2017-08-10] MEDS: METOPROLOL TARTRATE 50 MG TAB PO SCH ×3 (09:00→20:12)
[2017-08-10] MEDS: CEFTRIAXONE SOD 1 GM VIAL IV SCH (09:03)
[2017-08-10 09:17] LABS: ANISOCYTOSIS SLIGHT; BAND NEUTROPHILS % (MANUAL) 1 %; EOSINOPHILS % (MANUAL) 1 % (0-7); HYPOCHROMASIA MODERATE; LYMPHOCYTES % (MANUAL) 24 % (19-48); MONOCYTES % (MANUAL) 5 % (3.4-9.0); NEUTROPHILS % (MANUAL) 69 % (40-74); PLATELET ESTIMATE ADEQUATE; PLATELET MORPHOLOGY COMMENT NORMAL; RBC MORPHOLOGY COMMENT NORMAL
--- NOTE | 2017-08-10 13:08 | Diagnostic Imaging Report ---
PROCEDURE:ABDOMINAL ULTRASOUND COMPARISON:Abdominal MRI 08/07/2017, abdominal CT 08/06/2017. INDICATIONS:FREYA, LT. LOBE LIVER MASS, PORTAL HYPERTENSION TECHNIQUE: Choudhury-scale and color sonographic images were obtained of the abdomen in transverse and sagittal planes. FINDINGS: Liver: 21.1 cm in length in right midclavicular line. Coarsened, heterogeneous echogenicity. 3.6 x 1.8 x 3.2 cm predominately hypoechoic subcapsular mass in the left lobe as seen on prior cross-sectional imaging. Main portal vein: 1.1 cm in caliber. hepatopetal flow Gallbladder: Surgically removed Common Bile Duct: 0.5 cm in caliber. Right kidney: 12 cm in length. Normal renal cortical echogenicity. No solid or cystic mass lesion. No calculus or hydronephrosis. Left kidney: 13 cm in length. Normal renal cortical echogenicity. No solid or cystic lesion. No calculus or hydronephrosis. Spleen: Enlarged, measuring 17 cm in length. Uniform parenchymal echotexture. Pancreas: The visualized portions are unremarkable. Inferior vena cava: Patent Aorta: Non-aneurysmal Ascites: None CONCLUSION: Cirrhosis with portal hypertension evidenced by splenomegaly. 3.6 cm hypoechoic mass in the left hepatic lobe is indeterminate though remains concerning for hepatocellular carcinoma as previously discussed. Definitive characterization with contrast enhanced multiphase CT or MRI of the abdomen is suggested when clinically feasible. Dictated by: Lewis Mix M.D. on 08/10/2017 at 13:10 Electronically approved by: Lewis Mix M.D. on 08/10/2017 at 13:10
[2017-08-10] MEDS: INSULIN DETEMIR 100 UNIT/ML PEN SQ SCH (13:55)
[2017-08-10] MEDS: ALBUTEROL/IPRATROPIUM 3 ML NEB NEB PRN (17:27)
[2017-08-10] MEDS: NIFEDIPINE CR 30 MG TAB PO SCH (20:12)
--- NOTE | 2017-08-10 21:44 | Progress Note ---
DATE: August 10, 2017 PULMONARY MEDICINE PROGRESS NOTE SUBJECTIVE: Ms. Graham was seen and examined at bedside. She is currently on high-flow nasal cannula at 10 liters per minute. She is about to go on oxygen during sleep. Overall, she feels better again today. She is tolerating clear liquid diet. REVIEW OF SYSTEMS: No headaches, no double vision. OBJECTIVE: VITAL SIGNS: Afebrile, vital signs noted per electronic record. GENERAL: In no acute distress, alert and calm. HEENT: Normocephalic, atraumatic. NECK: Supple. Throat midline. LUNGS: Bilateral air entry, few rhonchi. CARDIOVASCULAR: S1, S2. No murmurs, rubs, or gallops. ABDOMEN: Soft, nontender. Obese. EXTREMITIES: No clubbing, no cyanosis, there is 1+ to 2+ edema. INTEGUMENT: No rash, no purpura. LABS: 38 BUN, 1.3 creatinine. 3.6 potassium, 23 bicarbonate. 9 white count, 25 hematocrit, 254,000 platelets. Abdominal ultrasound with 17 cm spleen, normal kidneys and renal system, 21 cm liver with 3.6 hypoechoic subcapsular mass with hepatopetal flow portal hypertension. IMPRESSION AND PLAN: 1. Acute respiratory failure, active, but improved. Now extubated. 2. Obesity, possible obstructive sleep apnea. 3. Secondary lung injury, acute. 4. Chronic right middle lobe atelectasis likely. 5. Acute kidney injury, improving. 6. Pyelonephritis, severe with Escherichia coli bacteremia. 7. Mild diabetic ketoacidosis. Continue current treatment. Continue to control blood sugar. Adjustments in insulin were made by primary care physician. Will follow along closely. Continue antibiotics. Mobilize patient with physical therapy tomorrow. If she can mobilize well, will discontinue the Garcia. Continue to escalate diet. Follow up closely. Deep venous thrombosis prophylaxis is strongly indicated. Job#: [id number]
[2017-08-11] VITALS (35 sets, daily range): BP systolic 122–155; BP diastolic 52–106
[2017-08-11] MEDS: MORPHINE SULFATE 2 MG/ML SYR IV PRN ×2 (03:25→22:11)
[2017-08-11] MEDS: ALBUTEROL/IPRATROPIUM 3 ML NEB NEB PRN (03:37)
[2017-08-11] MEDS: HEPARIN SOD (PORCINE) 5,000 UNIT/ML VIAL SC SCH (06:03)
[2017-08-11 06:12] LABS: BASOPHILS % 0.3 % (0.0-1.0); EOSINOPHILS # (AUTO) 0.2 (0.0-0.4); EOSINOPHILS % 2.1 % (0.0-6.0); LYMPHOCYTES # (AUTO) 1.2 (1.0-3.2); LYMPHOCYTES % 13.4 % (18.0-39.1); MEAN CORPUSCULAR HEMOGLOBIN 22.4 pg (28-32); MEAN CORPUSCULAR HGB CONC 30.7 g/dL (31-35); MEAN CORPUSCULAR VOLUME 73.1 fL (81-99); MONOCYTES # (AUTO) 0.7 (0.2-0.8); MONOCYTES % 7.9 % (4.4-11.3); NEUTROPHILS # (AUTO) 6.1 (2.1-6.9); NEUTROPHILS % 69.5 % (38.7-80.0); PLATELET COUNT 279 x10e3/uL (140-360); RED BLOOD COUNT 3.08 x10e6/uL (3.6-5.1); RED CELL DISTRIBUTION WIDTH 16.6 % (11.7-14.4)
[2017-08-11 06:13] LABS: HEMOGLOBIN 6.9 g/dL (12.0-16.0)
[2017-08-11 06:14] LABS: HEMATOCRIT 22.5 % (34.2-44.1)
[2017-08-11] MEDS ORDERED: SODIUM CHLORIDE 0.9% 250ML 250 ML IV ONE (06:30)
[2017-08-11 06:40] LABS: ANION GAP 14.2 mmol/L (8-16); BLOOD UREA NITROGEN 30 mg/dL (7-26); BUN/CREATININE RATIO 33 (6-25); CALCIUM 9.2 mg/dL (8.4-10.2); CARBON DIOXIDE 25 mmol/L (22-29); CHLORIDE 98 mmol/L (98-107); CREATININE, SERUM 0.92 mg/dL (0.57-1.11); EST GLOMERULAR FILTRATION RATE > 60 ML/MIN (60-); GLUCOSE 210 mg/dL (74-118); POTASSIUM 3.2 mmol/L (3.5-5.1); SODIUM 134 mmol/L (136-145)
[2017-08-11] MEDS: INSULIN REGULAR, HUMAN 100 UNIT/1 ML 3ML VIAL SQ SCH ×4 (08:11→20:18)
[2017-08-11] MEDS: CEFTRIAXONE SOD 1 GM VIAL IV SCH (08:38)
[2017-08-11] MEDS: METOPROLOL TARTRATE 50 MG TAB PO SCH ×2 (08:46→20:02)
[2017-08-11] MEDS: INSULIN DETEMIR 100 UNIT/ML PEN SQ SCH (12:10)
[2017-08-11] MEDS ORDERED: POTASSIUM CHLORIDE 20 MEQ TAB CR PO ONE (13:30)
--- NOTE | 2017-08-11 14:22 | Progress Note ---
DATE: August 11, 2017 PULMONARY MEDICINE PROGRESS NOTE SUBJECTIVE: Ms. Graham was seen and examined at bedside. She continues in the ICU at this time. Oxygen has been weaned down to 7 liters per minute. She is able to use the BiPAP during the night for sleep. She is feeling a little bit better today. She was able to walk in the ICU room as well as in the ICU hallway. She is not eating too much yet. REVIEW OF SYSTEMS: No headaches, no rash. OBJECTIVE VITAL SIGNS: Afebrile. Vital signs noted per electronic record. GENERALLY: No acute distress, alert and calm but very tired in bed. HEENT: Normocephalic, atraumatic. NECK: Supple. Throat midline. LUNGS: Bilateral air entry, a few rhonchi, rare wheeze. CARDIOVASCULAR: S1 and S2. No murmurs, rubs or gallops. ABDOMINAL: Soft, nontender. EXTREMITIES: No clubbing, no cyanosis. There is 1+ edema. INTEGUMENT: No rash. No purpura. LABS: BUN 30, creatinine 0.9. Potassium 3.2. White count 9, hematocrit 22, platelets 239. IMPRESSION AND PLAN 1. Escherichia coli septicemia. 2. Pyelonephritis. 3. Weakness. 4. Acute lung injury, multiple-organ dysfunction syndrome. 5. Hypoxemia. 6. Acute kidney injury, improving. Continue current treatment. Follow up creatinine again tomorrow to ensure further improvement of the kidneys. Give some potassium supplement. Continue some IV antibiotics for this septicemia. Follow along closely. Discontinue Garcia and keep mobilizing the patient. Patient is also slated for blood transfusion. Job#: [id number] EV
[2017-08-11] MEDS: ACETAMINOPHEN 325 MG TAB PO PRN (16:07)
[2017-08-11] MEDS: FAMOTIDINE 20 MG TAB PO SCH (16:40)
[2017-08-11] MEDS ORDERED: SALINE 0.65% NAS SOLN 1 SPRAY BTL PRN (19:15)
[2017-08-11] MEDS ORDERED: FLUTICASONE PROPIONATE NASAL SPRAY NS PRN (19:15)
[2017-08-11] MEDS: NIFEDIPINE CR 30 MG TAB PO SCH (20:02)
[2017-08-12] VITALS (16 sets, daily range): BP systolic 84–164; BP diastolic 52–88
[2017-08-12 06:22] LABS: BASOPHILS # (AUTO) 0.1 (0.0-0.1); BASOPHILS % 0.5 % (0.0-1.0); EOSINOPHILS # (AUTO) 0.2 (0.0-0.4); EOSINOPHILS % 2.5 % (0.0-6.0); HEMATOCRIT 27.3 % (34.2-44.1); HEMOGLOBIN 8.4 g/dL (12.0-16.0); LYMPHOCYTES # (AUTO) 1.4 (1.0-3.2); LYMPHOCYTES % 14.2 % (18.0-39.1); MEAN CORPUSCULAR HEMOGLOBIN 23.1 pg (28-32); MEAN CORPUSCULAR HGB CONC 30.8 g/dL (31-35); MEAN CORPUSCULAR VOLUME 75.2 fL (81-99); MONOCYTES # (AUTO) 0.6 (0.2-0.8); NEUTROPHILS # (AUTO) 6.8 (2.1-6.9); NEUTROPHILS % 69.2 % (38.7-80.0); PLATELET COUNT 345 x10e3/uL (140-360); RED BLOOD COUNT 3.63 x10e6/uL (3.6-5.1); RED CELL DISTRIBUTION WIDTH 16.4 % (11.7-14.4)
[2017-08-12 07:03] LABS: ALANINE AMINOTRANSFERASE 32 IU/L (0-55); ALBUMIN 2.1 g/dL (3.5-5.0); ALBUMIN/GLOBULIN RATIO 0.4 (0.8-2.0); ALKALINE PHOSPHATASE 134 IU/L (40-150); ANION GAP 16.1 mmol/L (8-16); BLOOD UREA NITROGEN 21 mg/dL (7-26); BUN/CREATININE RATIO 25 (6-25); CALCIUM 9.7 mg/dL (8.4-10.2); CARBON DIOXIDE 25 mmol/L (22-29); CHLORIDE 103 mmol/L (98-107); CREATININE, SERUM 0.85 mg/dL (0.57-1.11); EST GLOMERULAR FILTRATION RATE > 60 ML/MIN (60-); GLUCOSE 122 mg/dL (74-118); MAGNESIUM 1.4 MG/DL (1.3-2.1); PHOSPHORUS 3.9 MG/DL (2.3-4.7); POTASSIUM 3.1 mmol/L (3.5-5.1); SODIUM 141 mmol/L (136-145)
[2017-08-12] MEDS: INSULIN REGULAR, HUMAN 100 UNIT/1 ML 3ML VIAL SQ SCH ×4 (07:30→20:56)
[2017-08-12] MEDS ORDERED: POTASSIUM CHLORIDE 20 MEQ TAB CR PO STA (07:39)
[2017-08-12] MEDS ORDERED: MAGNESIUM SULFATE 2GM/50ML 50 ML IV ONE (08:00)
[2017-08-12] MEDS: FAMOTIDINE 20 MG TAB PO SCH ×2 (08:02→17:03)
[2017-08-12] MEDS: METOPROLOL TARTRATE 50 MG TAB PO SCH ×2 (08:03→20:54)
[2017-08-12] MEDS: CEFTRIAXONE SOD 1 GM VIAL IV SCH (08:03)
[2017-08-12] MEDS: INSULIN DETEMIR 100 UNIT/ML PEN SQ SCH (08:21)
[2017-08-12] MEDS ORDERED: POTASSIUM CHLORIDE 20 MEQ TAB CR PO SCH (10:00)
[2017-08-12 10:13] LABS: ANISOCYTOSIS SLIGHT; BAND NEUTROPHILS % (MANUAL) 2 %; EOSINOPHILS % (MANUAL) 3 % (0-7); HYPOCHROMASIA SLIGHT; LYMPHOCYTES % (MANUAL) 9 % (19-48); METAMYELOCYTES % (MANUAL) 2 % (0-0); MONOCYTES % (MANUAL) 6 % (3.4-9.0); NEUTROPHILS % (MANUAL) 77 % (40-74); PLATELET ESTIMATE ADEQUATE; PLATELET MORPHOLOGY COMMENT NORMAL; PROMYELOCYTES % (MANUAL) 1 % (0-0); RBC MORPHOLOGY COMMENT NORMAL
--- NOTE | 2017-08-12 14:33 | Progress Note ---
DATE: August 12, 2017 PULMONARY MEDICINE PROGRESS NOTE SUBJECTIVE: Ms. Graham was seen and examined at bedside. She continues to feel better. She is walking around more. There is less abdominal and less flank pain. Patient is now weaned down to 2 liters per minute by nasal cannula oxygen. She is contact guard assist to minimal assist now when walking. REVIEW OF SYSTEMS: No headache, no rash. OBJECTIVE VITAL SIGNS: Afebrile. Vital signs noted per the chart record. GENERAL: No acute distress, alert and calm. HEENT: Normocephalic, atraumatic. NECK: Supple. Throat midline. LUNGS: Bilateral air entry, a few rhonchi. CARDIOVASCULAR: S1, S2. No murmurs, rubs, or gallops. ABDOMEN: Soft, nontender. EXTREMITIES: No clubbing, no cyanosis, there is no edema. INTEGUMENT: No rash. No purpura. LABS: Potassium 2.1, BUN 21, creatinine 48. White count 10, hematocrit 32. IMPRESSION AND PLAN 1. Escherichia coli septicemia. 2. Pyelonephritis. 3. Cirrhosis. 4. Hepatic mass, probably hepatocellular carcinoma. 5. Encephalopathy, improved. Patient is not using BiPAP anymore. Will continue the oxygen by nasal cannula and wean this down. Mobilize the patient further. Patient remains at significant risk for deep venous thrombosis so I have notified nursing to continue mechanical means if the patient is not on the heparin. Patient will have continued followup to ensure further improvement. Job#: [id number] ADRYAN
[2017-08-12] MEDS ORDERED: LIDOCAINE VISC 2% SOLN 15 ML UDC PO PRN (16:30)
[2017-08-12] MEDS: ACETAMINOPHEN 325 MG TAB PO PRN (20:10)
[2017-08-12] MEDS: NIFEDIPINE CR 30 MG TAB PO SCH (20:54)
[2017-08-13] VITALS (8 sets, daily range): BP systolic 140–167; BP diastolic 65–73
[2017-08-13 06:15] LABS: BASOPHILS % 0.4 % (0.0-1.0); EOSINOPHILS # (AUTO) 0.2 (0.0-0.4); EOSINOPHILS % 2.8 % (0.0-6.0); HEMATOCRIT 26.6 % (34.2-44.1); HEMOGLOBIN 8.1 g/dL (12.0-16.0); LYMPHOCYTES # (AUTO) 1.2 (1.0-3.2); MEAN CORPUSCULAR HEMOGLOBIN 23.1 pg (28-32); MEAN CORPUSCULAR HGB CONC 30.5 g/dL (31-35); MEAN CORPUSCULAR VOLUME 75.8 fL (81-99); MONOCYTES # (AUTO) 0.5 (0.2-0.8); MONOCYTES % 6.1 % (4.4-11.3); NEUTROPHILS # (AUTO) 5.5 (2.1-6.9); PLATELET COUNT 337 x10e3/uL (140-360); RED BLOOD COUNT 3.51 x10e6/uL (3.6-5.1); RED CELL DISTRIBUTION WIDTH 16.9 % (11.7-14.4)
[2017-08-13 06:40] LABS: ANION GAP 14.5 mmol/L (8-16); BLOOD UREA NITROGEN 15 mg/dL (7-26); BUN/CREATININE RATIO 20 (6-25); CALCIUM 9.5 mg/dL (8.4-10.2); CARBON DIOXIDE 25 mmol/L (22-29); CHLORIDE 103 mmol/L (98-107); CREATININE, SERUM 0.74 mg/dL (0.57-1.11); EST GLOMERULAR FILTRATION RATE > 60 ML/MIN (60-); GLUCOSE 177 mg/dL (74-118); MAGNESIUM 1.3 MG/DL (1.3-2.1); POTASSIUM 3.5 mmol/L (3.5-5.1); SODIUM 139 mmol/L (136-145)
[2017-08-13] MEDS: FAMOTIDINE 20 MG TAB PO SCH ×2 (08:00→17:29)
[2017-08-13] MEDS: CEFTRIAXONE SOD 1 GM VIAL IV SCH (08:00)
[2017-08-13] MEDS: METOPROLOL TARTRATE 50 MG TAB PO SCH ×2 (08:00→21:32)
[2017-08-13] MEDS: INSULIN REGULAR, HUMAN 100 UNIT/1 ML 3ML VIAL SQ SCH ×4 (08:15→21:33)
[2017-08-13] MEDS: INSULIN DETEMIR 100 UNIT/ML PEN SQ SCH (08:16)
[2017-08-13 08:43] LABS: EOSINOPHILS % (MANUAL) 4 % (0-7); LYMPHOCYTES % (MANUAL) 12 % (19-48); METAMYELOCYTES % (MANUAL) 2 % (0-0); MONOCYTES % (MANUAL) 7 % (3.4-9.0); NEUTROPHILS % (MANUAL) 72 % (40-74); PLATELET ESTIMATE ADEQUATE; PLATELET MORPHOLOGY COMMENT FEW GIANT; PROMYELOCYTES % (MANUAL) 1 % (0-0)
[2017-08-13 08:46] LABS: ANISOCYTOSIS SLIGHT; HYPOCHROMASIA SLIGHT; RBC MORPHOLOGY COMMENT NORMAL
[2017-08-13 08:47] LABS: POIKILOCYTOSIS SLIGHT
[2017-08-13] MEDS: ACETAMINOPHEN 325 MG TAB PO PRN (10:42)
--- NOTE | 2017-08-13 14:16 | Progress Note ---
DATE: August 13, 2017 PULMONARY MEDICINE PROGRESS NOTE SUBJECTIVE: Ms. Graham was seen and examined at bedside. She continues to have better strengthening. She is now independent on mobilization. She has 95% oxygen saturation. She is on room air FIO2. She is starting to eat better. She has bowel movements. REVIEW OF SYSTEMS: No headaches, no bleeding. OBJECTIVE VITAL SIGNS: Afebrile. Vital signs noted per electronic record. GENERALLY: No acute distress, alert and calm. HEENT: Normocephalic, atraumatic. NECK: Supple. Throat midline. LUNGS: Bilateral air entry, a few crackles throughout the bases. CARDIOVASCULAR: S1 and S2. No murmurs, rubs or gallops. ABDOMINAL: Soft, nontender. EXTREMITIES: No clubbing, no cyanosis. There is only trace edema. INTEGUMENT: No rash. No purpura. LABS: BUN 15, creatinine 0.74, potassium 3.5. White count 7.8, hematocrit 27, platelets 337. IMPRESSION AND PLAN 1. Acute respiratory failure, resolved. 2. Severe pyelonephritis. 3. Chronic bacteremia. 4. Weakness, improving. 5. Cirrhosis and other hepatic issues with a hepatic mass. Continue current treatment. Continue to mobilize the patient. DVT prophylaxis is still strongly recommended. Patient at this time will continue on IV antibiotics. She can leave the ICU. Her kidneys are much better. Will decrease the amount and times we are checking her electrolytes. Job#: [id number] EV
[2017-08-13] MEDS ORDERED: POTASSIUM CHLORIDE 20 MEQ TAB CR PO STA (16:11)
[2017-08-13] MEDS ORDERED: MAGNESIUM SULFATE 2GM/50ML 50 ML IV ONE ×2 (16:15→18:15)
[2017-08-13] MEDS ORDERED: FLUTICASONE PROPIONATE NASAL SPRAY NS PRN (18:15)
[2017-08-13] MEDS ORDERED: PROMETHAZINE 12.5MG/ NACL 0.9% 50 ML IV PRN (18:15)
[2017-08-13] MEDS ORDERED: LIDOCAINE VISC 2% SOLN 15 ML UDC PO PRN ×2 (18:15)
[2017-08-13] MEDS ORDERED: IRON SUCROSE 100 MG in SODIUM CHLORIDE 0.9% 100 ML 100 ML IV SCH (18:15)
[2017-08-13] MEDS ORDERED: ALBUTEROL/IPRATROPIUM 3 ML NEB NEB PRN (18:15)
[2017-08-13] MEDS ORDERED: HYDRALAZINE HCL 20 MG/ML VIAL IV PRN (18:15)
[2017-08-13] MEDS ORDERED: SALINE 0.65% NAS SOLN 1 SPRAY BTL PRN (18:15)
[2017-08-13] MEDS ORDERED: CEFTRIAXONE SOD 1 GM VIAL IV SCH (18:15)
[2017-08-13] MEDS ORDERED: DEXTROSE 50% SYRINGE 50 ML IV PRN (18:15)
[2017-08-13] MEDS ORDERED: MORPHINE SULFATE 2 MG/ML SYR IV PRN (19:30)
[2017-08-13] MEDS ORDERED: NIFEDIPINE CR 30 MG TAB PO SCH (21:00)
[2017-08-14] VITALS: BP 158/72
[2017-08-14] MEDS: ACETAMINOPHEN 325 MG TAB PO PRN ×2 (03:16→11:11)
[2017-08-14 04:00] VITALS: BP 146/66
[2017-08-14 05:38] LABS: BASOPHILS % 0.5 % (0.0-1.0); EOSINOPHILS # (AUTO) 0.2 (0.0-0.4); EOSINOPHILS % 2.1 % (0.0-6.0); HEMATOCRIT 28.7 % (34.2-44.1); HEMOGLOBIN 8.9 g/dL (12.0-16.0); LYMPHOCYTES # (AUTO) 1.6 (1.0-3.2); LYMPHOCYTES % 18.3 % (18.0-39.1); MEAN CORPUSCULAR HEMOGLOBIN 23.2 pg (28-32); MEAN CORPUSCULAR VOLUME 74.9 fL (81-99); MONOCYTES # (AUTO) 0.5 (0.2-0.8); MONOCYTES % 5.3 % (4.4-11.3); NEUTROPHILS # (AUTO) 5.9 (2.1-6.9); NEUTROPHILS % 69.5 % (38.7-80.0); PLATELET COUNT 404 x10e3/uL (140-360); RED BLOOD COUNT 3.83 x10e6/uL (3.6-5.1); RED CELL DISTRIBUTION WIDTH 16.9 % (11.7-14.4)
[2017-08-14 05:54] LABS: ANION GAP 14.7 mmol/L (8-16); BLOOD UREA NITROGEN 11 mg/dL (7-26); BUN/CREATININE RATIO 14 (6-25); CALCIUM 9.9 mg/dL (8.4-10.2); CARBON DIOXIDE 26 mmol/L (22-29); CHLORIDE 102 mmol/L (98-107); CREATININE, SERUM 0.79 mg/dL (0.57-1.11); EST GLOMERULAR FILTRATION RATE > 60 ML/MIN (60-); GLUCOSE 178 mg/dL (74-118); MAGNESIUM 1.4 MG/DL (1.3-2.1); POTASSIUM 3.7 mmol/L (3.5-5.1); SODIUM 139 mmol/L (136-145)
[2017-08-14] MEDS ORDERED: FAMOTIDINE 20 MG TAB PO SCH (07:30)
[2017-08-14] MEDS ORDERED: CEFTRIAXONE SOD 1 GM VIAL IV SCH (08:00)
[2017-08-14 08:16] VITALS: BP 138/63
[2017-08-14] MEDS: METOPROLOL TARTRATE 50 MG TAB PO SCH (08:34)
[2017-08-14] MEDS: INSULIN REGULAR, HUMAN 100 UNIT/1 ML 3ML VIAL SQ SCH ×2 (08:34→12:12)
[2017-08-14] MEDS ORDERED: INSULIN DETEMIR 100 UNIT/ML PEN SQ SCH (09:00)
[2017-08-14 09:44] VITALS: BP 146/70
[2017-08-14 12:01] VITALS: BP 130/59
--- NOTE | 2017-08-14 12:48 | Discharge Summary ---
PRIMARY CARE DOCTOR: Dr. Noé Mancia. FINAL DIAGNOSIS: Escherichia coli septicemia present on admission due to acute Escherichia coli pyelonephritis. SECONDARY DIAGNOSIS 1. Acute respiratory failure, resolved. 2. Diabetes, stable. 3. Iron deficiency, chronic blood loss anemia, status post 1 unit of packed red blood cells transfusion, will need outpatient colonoscopy 4. Acute renal failure, resolved. 5. Cirrhosis per imaging studies with a 3.6 cm mass in the left hepatic lobe. CONSULTANTS: Dr. Shi, chief controller. PROCEDURES/STUDIES PERFORMED 1. Central line placement. 2. One unit of packed red blood cells transfusion. 3. Computed tomography of the abdomen and pelvis. 4. Chest computed tomography. 5. Abdominal magnetic resonance imaging. 6. Abdominal ultrasound. HISTORY: Per H\T\P. HOSPITAL COURSE: Patient was admitted. Initially we had to transfer her to ICU due to acute respiratory failure. Patient had to be on BiPAP. Slowly patient improved. Currently patient is on room air. She did require 1 unit of packed red blood cells transfusion. Her hemoglobin responded appropriately. Patient will need outpatient colonoscopy. She also received intravenous iron as well. Incidentally patient was found to have several cysts by imaging studies. There is also a liver mass as well. Fortunately, her alpha-fetoprotein tumor marker is negative. Unfortunately, her hepatitis panel is still pending. The patient did not have any thrombocytopenia to go with cirrhosis, and also her INR is normal as well. This information was related to the patient. I will also update her primary care doctor. She will need to follow up with her primary care doctor in 1 to 2 weeks. Patient will go home on 1 more week of p.o. Levaquin based on sensitivity result. Of note, Levaquin has 100% bioavailability. Patient was seen and examined today. It took 32 minutes total to discharge this patient. CONDITION ON DISCHARGE: Stable. DISCHARGE MEDICATIONS: Please see medication reconciliation form. OSKAR BAPTISTE M.D. Job#: [id number] EV cc:NOÉ MANCIA MD
[2017-08-14] MEDS ORDERED: LEVAQUIN500 MG PO (15:02)
== END 2017-08-14 15:14 | disposition home or self-care (01) | DRG 871 ==
LOC: ER 17:16 → ERHOLD 19:08 → EDBEDREQSVC 08-07 08:26 → MED/SURG 08-07 09:29 → ICU 08-08 14:11 → MED/SURG 08-13 15:35
PROVIDERS: ADMIT Internal Medicine; ATTEND Internal Medicine
PROC: 02HV33Z Insertion of Infusion Device into Superior Vena Cava, Percutaneous Approach (ICD-10-PCS; principal; 2017-08-08)
PROC: B5181ZA Fluoroscopy of Superior Vena Cava using Low Osmolar Contrast, Guidance (ICD-10-PCS; 2017-08-08)
PROC: 30243N1 Transfusion of Nonautologous Red Blood Cells into Central Vein, Percutaneous Approach (ICD-10-PCS; 2017-08-11)
DX: A41.51 Sepsis due to Escherichia coli [E. coli] (principal); J18.9 Pneumonia, unspecified organism; J96.01 Acute respiratory failure with hypoxia; E11.10 Type 2 diabetes mellitus with ketoacidosis without coma; E87.1 Hypo-osmolality and hyponatremia; N12 Tubulo-interstitial nephritis, not specified as acute or chronic; N17.9 Acute kidney failure, unspecified; E87.2 Acidosis; K76.6 Portal hypertension; D68.9 Coagulation defect, unspecified; E86.0 Dehydration; E11.22 Type 2 diabetes mellitus with diabetic chronic kidney disease; I12.9 Hypertensive chronic kidney disease with stage 1 through stage 4 chronic kidney disease, or unspecified chronic kidney disease; N18.3 Chronic kidney disease, stage 3 (moderate); D50.0 Iron deficiency anemia secondary to blood loss (chronic); K74.60 Unspecified cirrhosis of liver; R16.0 Hepatomegaly, not elsewhere classified; K21.9 Gastro-esophageal reflux disease without esophagitis; G47.33 Obstructive sleep apnea (adult) (pediatric); E66.01 Morbid (severe) obesity due to excess calories; Z68.39 Body mass index [BMI] 39.0-39.9, adult; E83.42 Hypomagnesemia; E87.6 Hypokalemia; E78.5 Hyperlipidemia, unspecified; E27.8 Other specified disorders of adrenal gland; Z85.3 Personal history of malignant neoplasm of breast; R65.20 Severe sepsis without septic shock; R79.1 Abnormal coagulation profile; J32.9 Chronic sinusitis, unspecified; Z79.4 Long term (current) use of insulin
CPT/HCPCS: 36415; 36556; 36600; 51700; 71045; 71250; 74176; 74181; 74470; 76700; 76937; 80048; 80053; 80076; 81001; 82105; 82270; 82550; 82553; 82805; 82947; 82948; 83540; 83605; 83690; 83735; 83880; 84100; 84443; 84466; 84484; 85014; 85018; 85025; 85610; 85730; 86850; 86900; 86920; 87040; 87071; 87086; 87186; 87205; 87400; 93005; 94640; 94660; 96372; 99285; C1751; J0360; J0696; J1580; J1644; J1756; J1940; J2270; J2405; J2543; J2550; J3370; J3475; J3480; J7030; J7040; J7050; P9016

== ENCOUNTER → 2017-11-06 | Day surgery (SDC) | payer OTHER ==
[~2017-11-06] MED LIST changes: +FENTANYL CITRATE/PF 100MCG/2 ML INJ ONE; +LEVAQUIN500 MG PO; +LIPITOR80 MG PO; +MIDAZOLAM HCL 2 MG/2 ML VIAL ONE; +PROPOFOL IV EMULSION 10 MG/ML 20 ML VIAL ONE
== END | disposition home or self-care (01) ==
LOC: OR 05:01
PROVIDERS: ATTEND Internal Medicine Gastroenterology
DX: Z12.11 Encounter for screening for malignant neoplasm of colon (principal); D17.5 Benign lipomatous neoplasm of intra-abdominal organs; K64.8 Other hemorrhoids; K21.9 Gastro-esophageal reflux disease without esophagitis; I10 Essential (primary) hypertension; E78.5 Hyperlipidemia, unspecified; E11.9 Type 2 diabetes mellitus without complications; E66.01 Morbid (severe) obesity due to excess calories; Z71.3 Dietary counseling and surveillance; Z01.810 Encounter for preprocedural cardiovascular examination; Z79.4 Long term (current) use of insulin; Z68.41 Body mass index [BMI] 40.0-44.9, adult
CPT/HCPCS: 36415; 45380; 82948; 93005; J2250

== ENCOUNTER → 2017-12-17 | Day surgery (SDC) | payer BC ==
[~2017-12-17] MED LIST changes: +INSULIN REGULAR, HUMAN 100 UNIT/1 ML 3ML VIAL ONE; -PROPOFOL IV EMULSION 10 MG/ML 20 ML VIAL ONE; +PROPOFOL IV EMULSION 10 MG/ML 50 ML VIAL ONE
[2017-12-17 08:10] VITALS: BP 128/79
== END | disposition home or self-care (01) ==
LOC: OR 06:09
PROVIDERS: ATTEND Internal Medicine Gastroenterology
DX: K74.60 Unspecified cirrhosis of liver (principal); K29.50 Unspecified chronic gastritis without bleeding; K21.9 Gastro-esophageal reflux disease without esophagitis; K44.9 Diaphragmatic hernia without obstruction or gangrene; Z71.3 Dietary counseling and surveillance; I10 Essential (primary) hypertension; E11.9 Type 2 diabetes mellitus without complications; E66.01 Morbid (severe) obesity due to excess calories; Z01.810 Encounter for preprocedural cardiovascular examination; Z79.4 Long term (current) use of insulin; Z68.41 Body mass index [BMI] 40.0-44.9, adult
CPT/HCPCS: 36415; 43239; 82948; 93005; J2250

== ENCOUNTER 2023-04-26 11:42 | Emergency (ER) | payer BC, OTHER ==
[~2023-04-26] VITALS: Ht 162.6 cm; Wt 127.0 kg
[~2023-04-26 11:42] MED LIST changes: -FENTANYL CITRATE/PF 100MCG/2 ML INJ ONE; -INSULIN REGULAR, HUMAN 100 UNIT/1 ML 3ML VIAL ONE; -MIDAZOLAM HCL 2 MG/2 ML VIAL ONE; -PROPOFOL IV EMULSION 10 MG/ML 50 ML VIAL ONE
[2023-04-26] MEDS ORDERED: CEFTRIAXONE 1 GM VIAL IV SCH (12:15)
[2023-04-26] MEDS ORDERED: SODIUM CHLORIDE 0.9% 1000ML 1,640 ML IV SCH (12:15)
[2023-04-26] MEDS ORDERED: ACETAMINOPHEN 1000 MG/100 ML IV STA (12:23)
[2023-04-26] MEDS ORDERED: ONDANSETRON HCL INJ 2MG/ML 2ML 2 MG/ML VIAL IV STA (12:23)
[2023-04-26 12:30] LABS: BASOPHILS % 0.1 % (0.0-1.0); EOSINOPHILS % 0.1 % (0.0-6.0); HEMATOCRIT 30.6 % (34.2-44.1); HEMOGLOBIN 9.7 g/dL (12.0-16.0); LYMPHOCYTES # (AUTO) 0.6 (1.0-3.2); MEAN CORPUSCULAR HEMOGLOBIN 25.9 pg (28-32); MEAN CORPUSCULAR HGB CONC 31.7 g/dL (31-35); MEAN CORPUSCULAR VOLUME 81.8 fL (81-99); MONOCYTES # (AUTO) 0.6 (0.2-0.8); NEUTROPHILS # (AUTO) 7.4 (2.1-6.9); NEUTROPHILS % 84.7 % (38.7-80.0); PLATELET COUNT 271 x10e3/uL (140-360); RED BLOOD COUNT 3.74 x10e6/uL (3.6-5.1); RED CELL DISTRIBUTION WIDTH 14.9 % (11.7-14.4); WHITE BLOOD COUNT 8.77 x10e3/uL (4.8-10.8)
[2023-04-26 12:38] LABS: INR 1.06
[2023-04-26 12:39] LABS: PARTIAL THROMBOPLASTIN TIME 34.3 seconds (23.8-35.5)
[2023-04-26 12:57] LABS: ALBUMIN 3.4 g/dL (3.5-5.0); ALBUMIN/GLOBULIN RATIO 0.8 (0.8-2.0); ANION GAP 18.8 mmol/L (8-16); BILIRUBIN,TOTAL 0.4 mg/dL (0.2-1.2); CALCIUM 9.7 mg/dL (8.4-10.2); CREATININE, SERUM 1.08 mg/dL (0.57-1.11); POTASSIUM 4.8 mmol/L (3.5-5.1); TOTAL PROTEIN 7.9 g/dL (6.5-8.1)
[2023-04-26 17:17] LABS: BILIRUBIN,URINE NEGATIVE (NEGATIVE); CLARITY,URINE CLEAR (CLEAR); COLOR,URINE YELLOW (YELLOW); GLUCOSE, URINE NEGATIVE (NEGATIVE); KETONES,URINE NEGATIVE (NEGATIVE); LEUKOCYTE ESTERASE ,URINE TRACE (NEGATIVE); NITRITE,URINE POSITIVE (NEGATIVE); PH,URINE 6 (5 - 7); PROTEIN,URINE DIPSTICK NEGATIVE (NEGATIVE); URINE UROBILINOGEN 0.2 mg/dL (0.2 - 1)
[2023-04-26 17:30] LABS: BACTERIA,URINE MANY /HPF; EPITHELIAL CELLS,URINE RARE /LPF; RBC,URINE 0-5 /HPF (0-5)
[2023-04-26] MEDS ORDERED: CEPHALEXIN500 MG PO (18:18)
[2023-04-26 19:33] VITALS: O2SAT 98
== END 2023-04-26 20:23 | disposition home or self-care (01) ==
LOC: ER 11:59
DX: R50.9 Fever, unspecified (principal); N39.0 Urinary tract infection, site not specified; R53.1 Weakness; R05.9 Cough, unspecified; E11.65 Type 2 diabetes mellitus with hyperglycemia; I10 Essential (primary) hypertension; F41.9 Anxiety disorder, unspecified; K21.9 Gastro-esophageal reflux disease without esophagitis; E78.5 Hyperlipidemia, unspecified; Z11.52 Encounter for screening for COVID-19; R94.31 Abnormal electrocardiogram [ECG] [EKG]; Z85.3 Personal history of malignant neoplasm of breast
CPT/HCPCS: 36415; 71045; 80053; 81001; 83605; 84484; 85025; 85610; 85730; 87040; 87086; 87400; 93005; 99284; J0131; J0696; J2405; J7030; U0002

== ENCOUNTER 2024-10-23 09:42 | Emergency (ER) | payer BC, MEDICARE ==
[~2024-10-23] VITALS: Ht 162.6 cm; Wt 127.0 kg
[~2024-10-23 09:42] MED LIST changes: +CEPHALEXIN500 MG PO
[2024-10-23 09:49] VITALS: TEMP 98.2
[2024-10-23 10:32] VITALS: PULSE 73; RESP 18; O2SAT 100
[2024-10-23] MEDS: ACETAMINOPHEN 325 MG TAB PO ONE (10:32)
== END 2024-10-23 11:45 | disposition home or self-care (01) ==
LOC: ER 09:50
DX: S00.03XA Contusion of scalp, initial encounter (principal); I10 Essential (primary) hypertension; E11.9 Type 2 diabetes mellitus without complications; F41.9 Anxiety disorder, unspecified; K21.9 Gastro-esophageal reflux disease without esophagitis; E78.5 Hyperlipidemia, unspecified; W18.30XA Fall on same level, unspecified, initial encounter; Y93.9 Activity, unspecified; Y92.9 Unspecified place or not applicable; Z85.3 Personal history of malignant neoplasm of breast
CPT/HCPCS: 70450; 72125; 99283